=== PATIENT | male | born 2000 | race Caucasian/White ===

== ENCOUNTER 2022-04-22 08:00 | Outpatient (CLI) | payer OTHER ==
--- NOTE | 2022-04-22 15:15 | XRAY Report ---
PROCEDURE: Hand 3 View RT INDICATIONS: RIGHT HAND PAIN TECHNIQUE: 3 views of the hand(s) acquired. COMPARISON: 03/16/2022 FINDINGS: Bones: Fracture through the third metacarpal neck with volar angulation and foreshortening shows neeru deling the fracture lines. Persistent diffuse soft tissues. Soft tissues: No suspicious soft tissue calcifications. IMPRESSION: Healing angulated third metacarpal fracture Reviewed by: Juvencio Chaudhry MD on 04/22/2022 2:14 PM AKDT Approved by: Juvencio Chaudhry MD on 04/22/2022 2:14 PM AKDT Station ID: [id number]
== END 2022-04-22 23:59 | disposition home or self-care (01) ==
LOC: DI.WOS 08:00
PROVIDERS: ATTEND Orthopaedic Surgery
DX: S62.392D Other fracture of third metacarpal bone, right hand, subsequent encounter for fracture with routine healing (principal)

== ENCOUNTER 2024-02-08 13:45 | Outpatient (CLI) | payer OTHER ==
--- NOTE | 2024-02-09 14:41 | MRI Report ---
PROCEDURE: Hand RT WO INDICATIONS: R HAND FX TECHNIQUE: Noncontrast coronal T1 spin echo and T2 fast spin echo with fat saturation, axial proton density fast spin echo and T2 fast spin echo with fat saturation, sagittal T1 spin echo and STIR through the hand and fingers. COMPARISON: Right hand radiograph dated 04/22/2022 and 03/16/2022. FINDINGS: Image quality: Excellent. Bones: Chronic-appearing deformity involving third metacarpal neck with moderate edema involving dist al third metacarpal shaft and third metacarpal neck. No other area of abnormal marrow signal. No susp icious intraosseous lesions. Interphalangeal joint(s): The accessory and proper collateral ligaments appear intact. The volar plate demonstrates normal morphology. The extensor central slips appear i ntact on sagittal images. Metacarpophalangeal joint(s): The radial and ulnar collateral ligaments of third MCP joint particula rly in. The volar plate appears intact. The sagittal bands of the extensor pabon appear normal. Extensor apparatus: There is suggestion of at least moderate grade partial-thickness tear involving c entral extensor slip of third digit at the level of third proximal phalangeal head with proximal retr action of torn tendon fibers to the level of third proximal phalangeal base. No full-thickness tendon rupture. The conjoint and terminal tendons insert normally on the distal phalangeal bases. More pro ximal portions of the extensor tendons also appear normal. Flexor apparatus: The flexor digitorum superficialis and profundus tendons of the third digit both a ppear thickened at the level of third MCP joint and third proximal phalanx. All annular and cruciform pulleys appear intact, without adjacent soft tissue edema. Soft tissues: Visualized muscles demonstrate normal bulk and internal signal. No intramuscular mass es identified. No ganglion cysts. IMPRESSION: 1. Subacute or chronic appearing deformity involving third metacarpal head with moderate residual tashia ma. No definite acute fracture or dislocation. No other area of abnormal marrow signal. 2. Sprain involving radial and ulnar collateral ligaments of third MCP joint. 3. At least moderate grade partial-thickness tear involving central extensor slip of third digit exte nsor tendon at the level of third proximal phalangeal head and neck with proximal retraction of torn tendon fibers to the level of third proximal phalangeal base. No full-thickness extensor tendon ruptu re. 4. Tendinosis involving flexor tendons of third digit at the level of third MCP joint and third proxi mal phalangeal shaft. Reviewed by: Luis M Carrasco MD on 02/09/2024 2:40 PM PDT Approved by: Luis M Carrasco MD on 02/09/2024 2:40 PM PDT Station ID: [id number]
== END 2024-02-08 13:46 | disposition home or self-care (01) ==
LOC: DI 13:45
DX: S62.33 Displaced fracture of neck of other metacarpal bone (principal); S53.21XA Traumatic rupture of right radial collateral ligament, initial encounter; S53.31XA Traumatic rupture of right ulnar collateral ligament, initial encounter; S66.312A Strain of extensor muscle, fascia and tendon of right middle finger at wrist and hand level, initial encounter; M67.843 Other specified disorders of tendon, right hand

== ENCOUNTER 2024-02-16 11:39 | Outpatient (CLI) | payer OTHER ==
--- NOTE | 2024-02-16 12:59 | XRAY Report ---
PROCEDURE: Hand 3+V RT INDICATIONS: DISPLACED FX OF NECK OF THIRD METACARPAL BONE TECHNIQUE: 3 views of the hand(s) acquired. COMPARISON: X-ray hand dated 04/22/2022 FINDINGS: Bones: No acute fracture or subluxation identified. Suggestion of old fracture deformity of the dist al third metacarpal. Soft tissues: Questionable soft tissue swelling of the thenar region. IMPRESSION: Fracture deformity of third distal metacarpal appears chronic Reviewed by: Nghia Perry MD on 02/16/2024 12:58 PM PDT Approved by: Nghia Perry MD on 02/16/2024 12:58 PM PDT Station ID: [id number]
== END 2024-02-16 11:40 | disposition home or self-care (01) ==
LOC: DI 11:39
PROVIDERS: ATTEND Orthopaedic Surgery
DX: S62.332D Displaced fracture of neck of third metacarpal bone, right hand, subsequent encounter for fracture with routine healing (principal)

== ENCOUNTER 2024-03-18 14:05 | Outpatient (CLI) | payer OTHER ==
--- NOTE | 2024-03-18 14:35 | Sleep Patient Instructions ---
Sleep Center Visit Summary - Patient Visit Information Reason for Visit: Initial consult for evaluation of sleep disordered breathing and other sleep issues. - Patient Instructions Instructions Attached: Sleep Study Additional Instructions: You will be completing a sleep study, either an in-lab polysomnography (PSG) or home sleep study (HST). You will follow-up in the sleep care office after the sleep study is completed to hear the results and talk about therapy, if needed. You will be called by our office staff to schedule this appointment, but you may contact us with any questions. - Clinic Information Contact: [facility] [address] [place] [address] [email or web address] T: [phone]
--- NOTE | 2024-03-18 14:37 | SLEEP CARE CONSULTATION ---
Information from patient questionnaire entered by Prosper Damon. I have reviewed and concur with the information entered by Prosper Damon. This document represents the service I personally performed and the decisions made by me, Renu Amaya ARNP. History of Present Illness Service Date and Time: 03/18/2024 1405 Reason for Visit: New patient Chief Complaint: reports: Unrefreshed sleep, Snoring, Excessive daytime sleepiness, Observed pauses in breathing, Frequent awakenings at night Date of Onset: 2 years Usual bedtime: 10:00 PM Time it takes to fall asleep: 10 - 30 mins Snores at night: Yes Observed to quit breathing while asleep: Yes Sleeps alone due to snoring: Yes (Sometimes) Number of times waking at night: 2 - 4 Reasons for waking at night: reports: Snoring, Gasping for air. denies: Choking Toss, Turn, or Twitch while sleeping: Yes Recalls having dreams: No Usually gets out of bed at: 5:15; weekends 6-7 AM Feels refreshed in the morning: No Morning headache: Yes (4-5 days a weel; Usually resolves between 9-10 AM, sometimes doesn't) Sleepy or fatigued during the day: Yes Ever fallen asleep while driving: No Takes day naps: Yes (typically daily for about an hour; usually when watching TV, no intentional) Dreams during day naps: No Prior sleep studies: No Additional HPI information: I had the pleasure of seeing JONI FIELDS today regarding the possibility of him having a sleep disorder. His current complaints are unrefreshed sleep, snoring, excessive daytime sleepiness, observed pauses in breathing and frequent night awakenings. He says his sleep has been "bad" for last couple years. His is concerned about his loud snoring and gasping in his sleep waking her up at night. He says he never feels well rested and is fatigued during the day. 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 Patient is and lives in [place]. Have you smoked in the past 12 months: No Cigarettes per day (20/pack): 20 Years of smokin Quit date: September 2020 Smoking Pack Years: 1.0 Alcohol use: Yes Alcohol amount and frequency: 3 - 4 beers, 1 - 2 days a week (weekends only) Caffeine use: No Family History Family history of sleep disordered breathing: No Allergies and Home Medications Known drug allergies: No Drug allergies reviewed: Yes Home medication list reviewed: Yes (as listed) Allergy and home medication list: Allergies No Known Drug Allergies Allergy (Verified 03/16/22 15:02) Home Medications Medication Instructions Recorded Confirmed Last Taken Type Acetaminophen [Pain Relief] 650 mg PO Q8HR #30 tablet 03/16/22 03/18/24 Unknown Rx Ibuprofen [Motrin] 800 mg PO Q8H PRN #30 tablet 03/16/22 03/18/24 Unknown Rx Omeprazole See Rx Instructions .ROUTE .COMPLEX 03/18/24 03/18/24 Unknown History Review of Systems Weight gain over past 5 years: 30 Weight loss over past 5 years: 0 Cardiovascular: reports: high blood pressure (some elevated readings at doctor's office), chest pain, irregular heart rate or pulse Gastrointestinal: reports: heartburn, difficulty swallowing, diarrhea, abdominal pain Neurological: reports: headaches, head trauma Psychiatric: reports: depression Ear/Nose/Throat: denies: tonsillectomy, wisdom teeth removed Endocrine: reports: sluggishness (/tired), too hot or cold Musculoskeletal: reports: joint pain (/stiffness), back pain Physical Exam Vital signs obtained and entered by: Renu Trevino NP Blood Pressure: 161/87 Cuff size: long (left arm) Heart Rate: 66 O2 Saturation: 98 Height: 5 ft 8.25 in Weight: 246 lb 9.6 oz Body Mass Index: 37.2 BMI Classification: Obese Neck circumference: 17.75 (inches) Mouth and throat: narrow oropharynx Soft palate: long Hard palate: normal Uvula: normal Uvula visualization: 25% Mallampati Class III Tongue: normal in size Tonsils: 1+ Neck: normal w/o lymphadenopathy or thyromegaly Heart: regular rate and rhythm Lungs: clear bilaterally Impression and Plan 1. Suspected Obstructive Sleep Apnea-Hypopnea Syndrome, as suggested by a history of loud and irregular snoring, observed cessation of breath while asleep, gasping or choking in sleep, morning headache, frequent awakening during the night, unrefreshed sleep, cognitive impairment, and excessive daytime sleepiness. Narrow oropharynx and obesity are common predisposing factors for obstructive sleep apnea-hypopnea syndrome. I recommend proceeding to polysomnography to confirm the diagnosis and to assess severity. If the patient has significant sleep disordered breathing, a manual CPAP titration study will also be performed to find the optimal treatment pressure. I informed the patient of what the sleep studies involve and after some discussion, obtained agreement to proceed. The pathophysiology of obstructive sleep apnea-hypopnea syndrome was discussed with the patient and health risks of cardiovascular and cerebrovascular disease if not treated. Risks of drowsy driving discussed in detail and patient advised to avoid long distance driving and to toe puller at t he first sign of drowsiness. Patient agreed to plan. * Schedule polysomnography +- manual CPAP titration study and return in 1-2 weeks after the study to discuss result and initiate therapy. * Avoid long distance driving or driving when feeling sleepy. * Avoid alcohol, sedative and muscle relaxant around bedtime. * Attempt to lose weight. * Review instructions provided by trained office staff on how to prepare for the sleep study. * Return for follow-up after sleep study completed. Counseling Topics: Weight loss health impact Plan: PSG and follow up Visit Type: In Office Time Spent with Patient (minutes): 32 Provider Statement: I spent 100% of the Face to Face Visit with the patient with greater than 50% spent counseling the patient and coordination of care.
[2024-03-18 14:46] VITALS: BP 161/87; O2SAT 98
== END 2024-03-18 14:06 | disposition home or self-care (01) ==
LOC: SC 14:05
PROVIDERS: ATTEND Nurse Practitioner Family
DX: R06.83 Snoring (principal); G47.8 Other sleep disorders; G47.10 Hypersomnia, unspecified; R06.81 Apnea, not elsewhere classified; Z87.891 Personal history of nicotine dependence; R51.9 Headache, unspecified; R41.89 Other symptoms and signs involving cognitive functions and awareness; E66.9 Obesity, unspecified; Z68.37 Body mass index [BMI] 37.0-37.9, adult
CPT/HCPCS: 99203; 99212